=== PATIENT | male | born 1975 | race African-American/Black ===

== ENCOUNTER 2024-06-20 16:42 | Emergency (ER) | payer OTHER ==
[~2024-06-20] VITALS: Ht 185.4 cm; Wt 166.0 kg
[2024-06-20] VITALS (10 sets, daily range): BP systolic 83–142; BP diastolic 65–96
[2024-06-20 17:48] LABS: BASO% 0.3 % (0-3); EOS% 0.9 % (0-8); HEMATOCRIT 37.8 % (39.0-50.0); HEMOGLOBIN 12.6 g/dl (14.0-18.0); IMMATURE GRANULOCYTES 0.3 % (0.0-5.0); LYMPH% 26.2 % (15-41); MEAN CELL VOLUME 85.5 fL CALC (80.0-100.0); MEAN CORPUSCULAR HGB 28.5 pG CALC (26.0-32.0); MEAN CORPUSCULAR HGB CONC 33.3 g/dL CAL (32.0-36.0); MONO% 8.5 % (2-13); NEUT# 4.71 thou/uL (1.82-7.42); NEUT% 63.8 % (42-76); RED BLOOD COUNT 4.42 mill/uL (4.70-6.10)
[2024-06-20 17:59] LABS: ALBUMIN 4.6 g/dL (3.2-5.0); CREATININE 1.3 mg/dL (0.7-1.3); POTASSIUM 3.8 mmol/l (3.5-5.1); TOTAL PROTEIN 8.3 g/dL (6.3-8.2)
[2024-06-20 18:04] LABS: BILIRUBIN, TOTAL 0.6 mg/dL (0.2-1.3)
== END 2024-06-20 20:24 | disposition home or self-care (01) | DRG 90 ==
LOC: ED 16:42
PROVIDERS: Family Medicine
DX: S06.0X1A Concussion with loss of consciousness of 30 minutes or less, initial encounter (principal); S00.03XA Contusion of scalp, initial encounter; R07.89 Other chest pain; W03.XXXA Other fall on same level due to collision with another person, initial encounter; Y93.67 Activity, basketball; Y92.149 Unspecified place in prison as the place of occurrence of the external cause

== ENCOUNTER 2025-01-22 16:09 | Emergency (ER) | payer OTHER ==
[~2025-01-22] VITALS: Ht 185.4 cm; Wt 112.0 kg
[2025-01-22 16:18] VITALS: BP 148/122
[2025-01-22 16:30] VITALS: BP 140/92
[2025-01-22 16:45] VITALS: BP 151/99
[2025-01-22 17:00] VITALS: BP 160/95
[2025-01-22 17:02] VITALS: BP 160/95
== END 2025-01-22 17:05 | disposition home or self-care (01) | DRG 556 ==
LOC: ED 16:09
PROC: 2W3JX1Z Immobilization of Right Finger using Splint (ICD-10-PCS; principal; 2025-01-22)
DX: M79.641 Pain in right hand (principal); I10 Essential (primary) hypertension